=== PATIENT | male | born 1945 | race Caucasian/White ===

== ENCOUNTER 2016-11-27 06:17 | Day surgery (SDC) | payer MEDICARE ==
[2016-11-27] MEDS ORDERED: Sodium Chloride 0.9% 10 ML Syringe FLUSH PRN (07:30)
[2016-11-27 08:28] VITALS: BP 146/82
--- NOTE | 2016-11-27 10:19 | OR ---
DATE OF PROCEDURE: 11/27/2016 POSTOPERATIVE CARE: Postoperative care will be provided mainly at the [address] [place] [address] [facility] in conjunction with [facility]. PREOPERATIVE DIAGNOSIS: Cataract, left eye. PREOPERATIVE DIAGNOSIS: Cataract, left eye. PROCEDURE: Phacoemulsification with intraocular lens placement, left eye. ANESTHESIA: Topical and intracameral. ESTIMATED BLOOD LOSS: Minimal. COMPLICATIONS: None. PATHOLOGY SPECIMENS: None. SURGICAL FINDINGS: None. INDICATION FOR PROCEDURE: The patient is a 70-year-old male with history of a visually significant cataract in the left eye, which interfered with activities of daily living. This consisted of a nuclear sclerosis cataract. Following careful discussion of the risks, benefits and alternatives to cataract extraction with intraocular lens placement including blindness and , the patient elected to proceed, and informed, written consent was obtained prior to the procedure. DESCRIPTION OF THE PROCEDURE: The patient was previously identified, and a perry placed above the left eye. All sources, including the patient, indicated that the left eye was the correct eye. The patient was subsequently taken to the operating room where standard monitors were applied. The patient was then prepped and draped in the usual sterile fashion for ophthalmic surgery. Attention was first directed at the 12 o'clock position where a paracentesis port was fashioned. Shugar solution followed by Viscoat was instilled into the eye. Attention was then directed to the 8:30 position where a triplanar incision was made in a near-clear manner using a keratome. A continuous capsulorrhexis was then made using a combination of the cystotome and Utrata forceps. Hydrodissection was achieved using a balanced salt solution, and the lens rotated nicely. Phacoemulsification was then done using a modified [id number] technique without complication. Phaco time was 8.58 CDE. The remaining cortex was removed using the irrigation/aspiration handpiece. Provisc was then instilled into the eye. A Technis lens, model [id number], at 23.5 diopters was then placed in the capsular bag using an [place] injector. The remaining viscoelastic was removed using the irrigation/aspiration forceps. All wounds were then checked and found to be watertight. The lid speculum and drapes were removed. Maxitrol ointment was placed in the patient's left eye, and the eye was shielded. The patient tolerated the procedure well. The patient was instructed to follow up tomorrow. All needle and sponge counts were correct at the end of the procedure. Catie Cardenas MD /[id number]
== END 2016-11-27 08:25 | disposition home or self-care (01) ==
LOC: JP.SDS 06:17
PROVIDERS: ATTEND Ophthalmology
DX: H26.9 Unspecified cataract (principal); Z88.0 Allergy status to penicillin; Z88.7 Allergy status to serum and vaccine
CPT/HCPCS: 66984; C1780

== ENCOUNTER 2016-12-25 06:21 | Day surgery (SDC) | payer MEDICARE ==
[2016-12-25] MEDS ORDERED: Sodium Chloride 0.9% 10 ML SDV FLUSH PRN (07:15)
[2016-12-25 08:27] VITALS: BP 177/102
--- NOTE | 2016-12-25 09:33 | OR ---
DATE OF PROCEDURE: 12/25/2016 POSTOPERATIVE CARE: Postoperative care will be provided mainly at the [address] [place] [address] [facility] in conjunction with [facility]. PREOPERATIVE DIAGNOSIS: Cataract, right eye. PREOPERATIVE DIAGNOSIS: Cataract, right eye. PROCEDURE: Phacoemulsification with intraocular lens placement, right eye. ANESTHESIA: Topical and intracameral. ESTIMATED BLOOD LOSS: Minimal. COMPLICATIONS: None. PATHOLOGY SPECIMENS: None. SURGICAL FINDINGS: None. INDICATION FOR PROCEDURE: The patient is a 71-year-old male with history of a visually significant cataract in the right eye, which interfered with activities of daily living. This consisted of a nuclear sclerosis cataract. Following careful discussion of the risks, benefits and alternatives to cataract extraction with intraocular lens placement including blindness and , the patient elected to proceed, and informed, written consent was obtained prior to the procedure. DESCRIPTION OF THE PROCEDURE: The patient was previously identified, and a perry placed above the right eye. All sources, including the patient, indicated that the right eye was the correct eye. The patient was subsequently taken to the operating room where standard monitors were applied. The patient was then prepped and draped in the usual sterile fashion for ophthalmic surgery. Attention was first directed at the 12 o'clock position where a paracentesis port was fashioned. Shugar solution followed by Viscoat was instilled into the eye. Attention was then directed to the 8:30 position where a triplanar incision was made in a near-clear manner using a keratome. A continuous capsulorrhexis was then made using a combination of the cystotome and Utrata forceps. Hydrodissection was achieved using a balanced salt solution, and the lens rotated nicely. Phacoemulsification was then done using a modified [id number] technique without complication. Phaco time was 8.45 CDE. The remaining cortex was removed using the irrigation/aspiration handpiece. Provisc was then instilled into the eye. A Technis lens, model [id number], at 25.0 diopters was then placed in the capsular bag using an [place] injector. The remaining viscoelastic was removed using the irrigation/aspiration forceps. All wounds were then checked and found to be watertight. The lid speculum and drapes were removed. Maxitrol ointment was placed in the patient's right eye, and the eye was shielded. The patient tolerated the procedure well. The patient was instructed to follow up tomorrow. All needle and sponge counts were correct at the end of the procedure. Catie Cardenas MD /[id number]
== END 2016-12-25 08:29 | disposition home or self-care (01) ==
LOC: JP.SDS 06:21
PROVIDERS: ATTEND Ophthalmology
DX: H25.11 Age-related nuclear cataract, right eye (principal); I10 Essential (primary) hypertension; E78.00 Pure hypercholesterolemia, unspecified; K21.9 Gastro-esophageal reflux disease without esophagitis; E11.9 Type 2 diabetes mellitus without complications; Z88.0 Allergy status to penicillin; Z88.8 Allergy status to other drugs, medicaments and biological substances
CPT/HCPCS: 66984; C1780; J7050

== ENCOUNTER 2017-04-21 21:22 | Emergency (ER) | payer MEDICARE, OTHER ==
[2017-04-21 22:06] VITALS: BP 194/103
[2017-04-21] MEDS ORDERED: Ketorolac 60 MG/2 ML SDV IM ONE (22:41)
[2017-04-21] MEDS ORDERED: Cyclobenzaprine 10 MG Tab PO ONE (22:41)
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
== END 2017-04-21 23:08 | disposition home or self-care (01) ==
LOC: JP.ED 21:22
DX: M54.5 Low back pain (principal); I10 Essential (primary) hypertension; E78.00 Pure hypercholesterolemia, unspecified; K21.9 Gastro-esophageal reflux disease without esophagitis; E11.9 Type 2 diabetes mellitus without complications; E66.9 Obesity, unspecified; Z86.2 Personal history of diseases of the blood and blood-forming organs and certain disorders involving the immune mechanism; Z79.82 Long term (current) use of aspirin; Z79.899 Other long term (current) drug therapy; Z88.0 Allergy status to penicillin; Z88.8 Allergy status to other drugs, medicaments and biological substances
CPT/HCPCS: 96372; 99283; A9270; J1885

== ENCOUNTER 2019-05-14 19:01 | Emergency (ER) | payer MEDICARE ==
[2019-05-14] MEDS ORDERED: Sodium Chloride 0.9% 10 ML Syringe FLUSH PRN (19:45)
--- NOTE | 2019-05-14 19:49 | EDM.PDOC ---
ED HPI GENERAL MEDICAL PROBLEM - General Chief Complaint: General Stated Complaint: medical Time Seen by Provider: 05/14/19 19:49 Source of Information: Reports: Patient, EMS, Family () History Limitations: Reports: No Limitations (very simple thought processing ) - History of Present Illness INITIAL COMMENTS - FREE TEXT/NARRATIVE: Alert 73 year old male present via EMS for weakness, lightheadedness and near syncope which occurred around 5 pm this evening. Weakness and vestibular symptoms lasted until arrival to ER after 500cc nd given in route. Patient described symptoms as tunnel vision with mild headache and weakness. He did not fall and denies chest pain, pressure, nausea, shortness of breath or sweating before or during symptoms. Patient presents with for evaluation for acute concerns today. Patient's ate grilled cheese sandwich around noon. Patient had a new medication add 2 weeks ago for DM which has increased his thirst and increased urinary frequency. Patient had noted a nearly 20 pound weight loss in the last 2 weeks. Patient has a history of prostate cancer with radiation and renal concerns which were treated at the [facility] in [place]. 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: IV/IO Other Treatments TELEPHONE SERVICES SALES REPRESENTATIVE: 500 of NS IV Denies Pain Score (Numeric/FACES): 0 - Related Data Allergies Allergy/AdvReac Type Severity Reaction Status Date / Time Penicillins Allergy Hives Verified 05/14/19 19:09 varenicline [From Chantix] Allergy Cannot Verified 05/14/19 19:09 Remember Home Meds: Home Meds Metoprolol Tartrate [Lopressor] 50 mg PO BID 05/08/14 [History] Tamsulosin HCl 1 tab PO DAILY 02/26/16 [History] atorvaSTATin [Lipitor] 40 mg PO BEDTIME 02/26/16 [History] Glimepiride [Amaryl] 4 mg PO WITHBREAKFAST 11/24/16 [History] Pantoprazole Sodium [Protonix] 40 mg PO DAILY 07/13/17 [History] Empagliflozin [Jardiance] 10 mg PO DAILY 05/14/19 [History] Ferrous Gluconate 324 mg PO BID 05/14/19 [History] Losartan [Cozaar] 50 mg PO DAILY 05/14/19 [History] amLODIPine [Norvasc] 5 mg PO DAILY 05/14/19 [History] Past Medical History HEENT History: Reports: Cataract, Hard of Hearing, Impaired Vision Other HEENT History: wears glasses Cardiovascular History: Reports: High Cholesterol, Hypertension Respiratory History: Reports: COPD Gastrointestinal History: Reports: GERD Genitourinary History: Reports: Prostate Disorder, Other (See Below) Other Genitourinary History: benign left kidney tumor prostate CA surgery 5 weeks of radiation November 2018 Musculoskeletal History: Reports: Fracture Other Musculoskeletal History: right hand Endocrine/Metabolic History: Reports: Diabetes, Type II, Obesity/BMI 30+ Hematologic History: Reports: Anemia Oncologic (Cancer) History: Reports: Prostate Other Oncologic History: "thinking cancer on left kidney-going to [place] in September 2016 to have it checked on" Dermatologic History: Reports: None - Infectious Disease History Infectious Disease History: Reports: Chicken Pox - Past Surgical History HEENT Surgical History: Reports: Other (See Below) Other HEENT Surgeries/Procedures: eye lid surgery GI Surgical History: Reports: Colonoscopy, EGD Male Surgical History: Reports: Vasectomy Social & Family History - Family History Family Medical History: Noncontributory - Tobacco Use Smoking Status *Q: Current Some Day Smoker Years of Tobacco use: 60 Packs/Tins Daily: 0.5 Used Tobacco, but Quit: No Second Hand Smoke Exposure: Yes - Caffeine Use Caffeine Use: Reports: Coffee, Tea - Recreational Drug Use Recreational Drug Use: No ED ROS GENERAL - Review of Systems Review Of Systems: ROS reveals no pertinent complaints other than HPI. ED EXAM, GENERAL - Physical Exam Exam: See Below Exam Limited By: No Limitations General Appearance: Alert, WD/WN, No Apparent Distress Eye Exam: Bilateral Eye: EOMI, PERRL Ears: Normal External Exam, Normal Canal, Hearing Grossly Normal, Normal TMs Nose: Normal Inspection, Normal Mucosa, No Blood Throat/Mouth: Normal Inspection, Normal Lips, Normal Teeth, Normal Gums, Normal Oropharynx, Normal Voice, No Airway Compromise, Other (dry muscus membrane noted ) Head: Atraumatic, Normocephalic Neck: Normal Inspection, Supple, Non-Tender, Full Range of Motion Respiratory/Chest: No Respiratory Distress, Lungs Clear, Normal Breath Sounds, No Accessory Muscle Use, Chest Non-Tender Cardiovascular: Normal Peripheral Pulses, Regular Rate, Rhythm, No Edema GI/Abdominal: Normal Bowel Sounds, Soft, Non-Tender Back Exam: Normal Inspection, Full Range of Motion, NT Extremities: Normal Inspection, Normal Range of Motion, Non-Tender, No Pedal Edema Neurological: Alert, Oriented, CN II-XII Intact, Normal Cognition, Normal Gait, Normal Reflexes, No Motor/Sensory Deficits Psychiatric: Normal Affect, Normal Mood Skin Exam: Warm, Dry, Intact, Normal Color, No Rash EKG INTERPRETATION EKG Date: 05/14/19 Time: 20:08 Rhythm: NSR Rate (Beats/Min): 85 [place]: Normal P-Wave: Present QRS: Normal ST-T: Elevated (Anterior LEAD V2/V3 one box) QT: Normal Comparison: No Change (Previous V2-V3 elevation persistent) Course - Vital Signs Last Recorded V/S: Last Vital Signs Temp 36.6 C 05/14/19 22:08 Pulse 92 05/14/19 22:08 Resp 16 05/14/19 22:08 BP 132/78 05/14/19 22:08 Pulse Ox 98 05/14/19 22:08 - Orders/Labs/Meds Orders: Active Orders 24 hr Category Date Time Status Ambulate [RC] ASDIRECTED Care 05/14/19 22:01 Active Cardiac Monitoring [RC] .As Directed Care 05/14/19 19:46 Active EKG Documentation Completion [RC] ASDIRECTED Care 05/14/19 19:46 Active POC Glucose [Blood Glucose Check, Bedside] [RC] ONETIME Care 05/14/19 22:00 Active Peripheral IV Care [RC] . DIRECTED Care 05/14/19 19:46 Active CULTURE BLOOD [BC] Urgent Lab 05/14/19 19:50 Received CULTURE BLOOD [BC] Urgent Lab 05/14/19 20:04 Received CULTURE URINE [RM] Stat Lab 05/14/19 19:54 Received Sodium Chloride 0.9% [Normal Saline] 1,000 ml Med 05/14/19 20:30 Active IV ASDIRECTED Sodium Chloride 0.9% [Normal Saline] 1,000 ml Med 05/14/19 21:00 Active IV ASDIRECTED Sodium Chloride 0.9% [Saline Flush] Med 05/14/19 19:45 Active 10 ml FLUSH ASDIRECTED PRN Blood Culture x2 Reflex Set [OM.PC] Urgent Oth 05/14/19 19:45 Ordered Peripheral IV Insertion Adult [OM.PC] Urgent Oth 05/14/19 19:46 Ordered EKG 12 Lead [EK] Urgent Ther 05/14/19 19:46 Ordered Medication Orders Sodium Chloride (Normal Saline) 1,000 mls @ 1,000 mls/hr IV ASDIRECTED ERIBERTO Last Admin: 05/14/19 20:32 Dose: 1,000 mls/hr Sodium Chloride (Normal Saline) 1,000 mls @ 500 mls/hr IV ASDIRECTED ERIBERTO Sodium Chloride (Saline Flush) 10 ml FLUSH ASDIRECTED PRN PRN Reason: Keep Vein Open Labs: Laboratory Tests 05/14/19 05/14/19 05/14/19 Range/Units 19:50 19:50 19:50 WBC 12.9 H (4.5-11.0) K/uL RBC 4.28 L (4.30-5.90) M/uL Hgb 13.0 (12.0-15.0) g/dL Hct 38.9 L (40.0-54.0) % MCV 91 (80-98) fL MCH 30 (27-31) pg MCHC 33 (32-36) % Plt Count 224 (150-400) K/uL Neut % (Auto) 86 H (36-66) % Lymph % (Auto) 7 L (24-44) % Owen % (Auto) 6 (2-6) % Eos % (Auto) 1 L (2-4) % Baso % (Auto) 0 (0-1) % Sodium 138 L (140-148) mmol/L Potassium 4.4 (3.6-5.2) mmol/L Chloride 104 (100-108) mmol/L Carbon Dioxide 26 (21-32) mmol/L Anion Gap 12.4 (5.0-14.0) mmol/L BUN 25 H D (7-18) mg/dL Creatinine 2.2 H D (0.8-1.3) mg/dL Est Cr Clr Drug Dosing 28.38 mL/min Estimated GFR (MDRD) 30 L (>60) Glucose 302 H (74-106) mg/dL Lactic Acid 1.5 (0.4-2.0) mmol/L Calcium 9.6 (8.5-10.1) mg/dL Phosphorus (2.5-4.9) mg/dL Magnesium (1.8-2.4) mg/dL Total Bilirubin (0.2-1.0) mg/dL Direct Bilirubin (0.0-0.2) mg/dL Indirect Bilirubin AST (15-37) U/L ALT (12-78) U/L Alkaline Phosphatase (46-116) U/L Troponin I (0.000-0.056) ng/mL C-Reactive Protein 0.36 H (0.0-0.3) mg/dL Total Protein (6.4-8.2) g/dL Albumin (3.4-5.0) g/dL Globulin (2.3-3.5) g/dL Albumin/Globulin Ratio (1.2-2.2) Lipase 305 (73-393) U/L Urine Color (YELLOW) Urine Appearance (CLEAR) Urine pH (5.0-8.0) Ur Specific [place] (1.008-1.030) Urine Protein (NEGATIVE) mg/dL Urine Glucose (UA) (NEGATIVE) mg/dL Urine Ketones (NEGATIVE) mg/dL Urine Occult Blood (NEGATIVE) Urine Nitrite (NEGATIVE) Urine Bilirubin (NEGATIVE) Urine Urobilinogen (0.2-1.0) EU/dL Ur Leukocyte Esterase (NEGATIVE) Urine RBC (0-5) Urine WBC (0-5) Ur Epithelial Cells Amorphous Sediment Urine Bacteria Urine Mucus Ketones (NEGATIVE) 05/14/19 05/14/19 05/14/19 Range/Units 19:50 19:50 19:50 WBC (4.5-11.0) K/uL RBC (4.30-5.90) M/uL Hgb (12.0-15.0) g/dL Hct (40.0-54.0) % MCV (80-98) fL MCH (27-31) pg MCHC (32-36) % Plt Count (150-400) K/uL Neut % (Auto) (36-66) % Lymph % (Auto) (24-44) % Owen % (Auto) (2-6) % Eos % (Auto) (2-4) % Baso % (Auto) (0-1) % Sodium (140-148) mmol/L Potassium (3.6-5.2) mmol/L Chloride (100-108) mmol/L Carbon Dioxide (21-32) mmol/L Anion Gap (5.0-14.0) mmol/L BUN (7-18) mg/dL Creatinine (0.8-1.3) mg/dL Est Cr Clr Drug Dosing mL/min Estimated GFR (MDRD) (>60) Glucose (74-106) mg/dL Lactic Acid (0.4-2.0) mmol/L Calcium (8.5-10.1) mg/dL Phosphorus (2.5-4.9) mg/dL Magnesium 2.1 (1.8-2.4) mg/dL Total Bilirubin 0.3 (0.2-1.0) mg/dL Direct Bilirubin 0.13 (0.0-0.2) mg/dL Indirect Bilirubin 0.17 AST 16 (15-37) U/L ALT 32 (12-78) U/L Alkaline Phosphatase 126 H D (46-116) U/L Troponin I < 0.017 (0.000-0.056) ng/mL C-Reactive Protein (0.0-0.3) mg/dL Total Protein 7.2 (6.4-8.2) g/dL Albumin 3.3 L (3.4-5.0) g/dL Globulin 3.9 H (2.3-3.5) g/dL Albumin/Globulin Ratio 0.9 L (1.2-2.2) Lipase (73-393) U/L Urine Color (YELLOW) Urine Appearance (CLEAR) Urine pH (5.0-8.0) Ur Specific [place] (1.008-1.030) Urine Protein (NEGATIVE) mg/dL Urine Glucose (UA) (NEGATIVE) mg/dL Urine Ketones (NEGATIVE) mg/dL Urine Occult Blood (NEGATIVE) Urine Nitrite (NEGATIVE) Urine Bilirubin (NEGATIVE) Urine Urobilinogen (0.2-1.0) EU/dL Ur Leukocyte Esterase (NEGATIVE) Urine RBC (0-5) Urine WBC (0-5) Ur Epithelial Cells Amorphous Sediment Urine Bacteria Urine Mucus Ketones (NEGATIVE) 05/14/19 05/14/19 05/14/19 Range/Units 19:54 20:41 20:55 WBC (4.5-11.0) K/uL RBC (4.30-5.90) M/uL Hgb (12.0-15.0) g/dL Hct (40.0-54.0) % MCV (80-98) fL MCH (27-31) pg MCHC (32-36) % Plt Count (150-400) K/uL Neut % (Auto) (36-66) % Lymph % (Auto) (24-44) % Owen % (Auto) (2-6) % Eos % (Auto) (2-4) % Baso % (Auto) (0-1) % Sodium (140-148) mmol/L Potassium (3.6-5.2) mmol/L Chloride (100-108) mmol/L Carbon Dioxide (21-32) mmol/L Anion Gap (5.0-14.0) mmol/L BUN (7-18) mg/dL Creatinine (0.8-1.3) mg/dL Est Cr Clr Drug Dosing mL/min Estimated GFR (MDRD) (>60) Glucose (74-106) mg/dL Lactic Acid (0.4-2.0) mmol/L Calcium (8.5-10.1) mg/dL Phosphorus 4.1 (2.5-4.9) mg/dL Magnesium (1.8-2.4) mg/dL Total Bilirubin (0.2-1.0) mg/dL Direct Bilirubin (0.0-0.2) mg/dL Indirect Bilirubin AST (15-37) U/L ALT (12-78) U/L Alkaline Phosphatase (46-116) U/L Troponin I (0.000-0.056) ng/mL C-Reactive Protein (0.0-0.3) mg/dL Total Protein (6.4-8.2) g/dL Albumin (3.4-5.0) g/dL Globulin (2.3-3.5) g/dL Albumin/Globulin Ratio (1.2-2.2) Lipase (73-393) U/L Urine Color Yellow (YELLOW) Urine Appearance Clear (CLEAR) Urine pH 6.0 (5.0-8.0) Ur Specific [place] 1.010 (1.008-1.030) Urine Protein 100 H (NEGATIVE) mg/dL Urine Glucose (UA) 500 H (NEGATIVE) mg/dL Urine Ketones Negative (NEGATIVE) mg/dL Urine Occult Blood Negative (NEGATIVE) Urine Nitrite Negative (NEGATIVE) Urine Bilirubin Negative (NEGATIVE) Urine Urobilinogen 0.2 (0.2-1.0) EU/dL Ur Leukocyte Esterase Negative (NEGATIVE) Urine RBC 0-5 (0-5) Urine WBC Not seen (0-5) Ur Epithelial Cells Few Amorphous Sediment Not seen Urine Bacteria Few Urine Mucus Not seen Ketones Negative (NEGATIVE) Meds: Medications Generic Name Dose Route Start Last Admin Trade Name Freq PRN Reason Stop Dose Admin Sodium Chloride 1,000 mls @ 1,000 mls/hr 05/14/19 20:30 05/14/19 20:32 Normal Saline IV 1,000 mls/hr ASDIRECTED ERIBERTO Administration Sodium Chloride 1,000 mls @ 500 mls/hr 05/14/19 21:00 Normal Saline IV ASDIRECTED ERIBERTO Sodium Chloride 10 ml 05/14/19 19:45 Saline Flush FLUSH ASDIRECTED PRN Keep Vein Open Discontinued Medications Generic Name Dose Route Start Last Admin Trade Name Freq PRN Reason Stop Dose Admin Insulin Human Regular 6 unit 05/14/19 20:53 05/14/19 21:42 Humulin R SUBCUT 05/14/19 20:54 6 unit ONETIME ONE Administration - Radiology Interpretation Free Text/Narrative:: CXR PA/LAT: No acute cardiopulmonary findings noted. CT Head: No acute intracranial abnormality noted. Expected Atrophy. Radiology reports reviewed during ER visit. - Re-Assessments/Exams Free Text/Narrative Re-Assessment/Exam: Exam was completed with broad different consider including TIA, posterior stroke , vertigo, electrolyte abnormality, cardiac arrhythmia, MA, peripheral or central vertiginous syndrome with was acute, no episodic due to prolonged duration or positional. Patient has no current focal neurologic deficits, CN intact, no upper or lower motor weakness noted. 05/14/19 20:34 Laboratory results reviewed noting BS 300+, worsening renal function with elevated in BUN and Creatine 2.2. I spoke with inpatient physician regarding admission but recommended IVF, SubQ insulin and discharge with plan to hold Jardiance at this time. 05/14/19 20:54 Patient is feeling improved, food was offered and ambulated in the department. Reviewed remainder of his blood work, CXR and CT showing no acute concerning findings. I am concerned side effects from the Jardiance resulting in acute kidney injury with eGFR less than 30 which is a contraindication for use of Jardiance. Increase blood sugar of 300 despite not eating since noon today. 05/14/19 22:11 Departure - Departure Time of Disposition: 22:20 Disposition: Home, Self-Care 01 Clinical Impression: Hyperglycemia, Acute renal failure, Medication side effects present, Hypovolemia, Hyponatremia - Discharge Information Instructions: Acute Kidney Injury, Adult, Near-Syncope, Dehydration, Elderly, Rehydration, Elderly, Dehydration, Adult Referrals: PCP,None [Primary Care Provider] - Forms: ED Department Discharge Additional Instructions: 1. Hold Jardiance medication at this time due to side effects with increased thirst, urination and increase blood sugar noted. 2. Increased fluid intake water with meals per usual. 3. Continue additional routine medications. 4. Call PCP for recheck in 3-5 days. 5. Return to ER if continued symptoms or worsening concerns. 6. - Problem List & Annotations (1) Hyperglycemia SNOMED Code(s): 68216402 Code(s): R73.9 - HYPERGLYCEMIA, UNSPECIFIED Status: Acute Current Visit: Yes (2) Acute renal failure SNOMED Code(s): 32016174 Code(s): N17.9 - ACUTE KIDNEY FAILURE, UNSPECIFIED Status: Acute Current Visit: Yes (3) Medication side effects present SNOMED Code(s): 585993839 Code(s): T50.905A - ADVERSE EFFECT OF UNSP DRUG/MEDS/BIOL SUBST, INIT Status: Acute Current Visit: Yes (4) Hypovolemia SNOMED Code(s): 47095830 Code(s): E86.1 - HYPOVOLEMIA Status: Acute Current Visit: Yes - My Orders Last 24 Hours: My Active Orders 05/14/19 19:45 Sodium Chloride 0.9% [Saline Flush] 10 ml FLUSH ASDIRECTED PRN Blood Culture x2 Reflex Set [OM.PC] Urgent 05/14/19 19:46 Cardiac Monitoring [RC] .As Directed EKG Documentation Completion [RC] ASDIRECTED Peripheral IV Care [RC] . DIRECTED Peripheral IV Insertion Adult [OM.PC] Urgent EKG 12 Lead [EK] Urgent 05/14/19 19:50 CULTURE BLOOD [BC] Urgent 05/14/19 19:54 CULTURE URINE [RM] Stat 05/14/19 20:04 CULTURE BLOOD [BC] Urgent 05/14/19 20:30 Sodium Chloride 0.9% [Normal Saline] 1,000 ml IV ASDIRECTED 05/14/19 21:00 Sodium Chloride 0.9% [Normal Saline] 1,000 ml IV ASDIRECTED 05/14/19 22:00 POC Glucose [Blood Glucose Check, Bedside] [RC] ONETIME 05/14/19 22:01 Ambulate [RC] ASDIRECTED - Assessment/Plan Last 24 Hours: My Active Orders 05/14/19 19:45 Sodium Chloride 0.9% [Saline Flush] 10 ml FLUSH ASDIRECTED PRN Blood Culture x2 Reflex Set [OM.PC] Urgent 05/14/19 19:46 Cardiac Monitoring [RC] .As Directed EKG Documentation Completion [RC] ASDIRECTED Peripheral IV Care [RC] . DIRECTED Peripheral IV Insertion Adult [OM.PC] Urgent EKG 12 Lead [EK] Urgent 05/14/19 19:50 CULTURE BLOOD [BC] Urgent 05/14/19 19:54 CULTURE URINE [RM] Stat 05/14/19 20:04 CULTURE BLOOD [BC] Urgent 05/14/19 20:30 Sodium Chloride 0.9% [Normal Saline] 1,000 ml IV ASDIRECTED 05/14/19 21:00 Sodium Chloride 0.9% [Normal Saline] 1,000 ml IV ASDIRECTED 05/14/19 22:00 POC Glucose [Blood Glucose Check, Bedside] [RC] ONETIME 05/14/19 22:01 Ambulate [RC] ASDIRECTED
[2019-05-14] MEDS ORDERED: Sodium Chloride 0.9% 1,000 ML IV SCH ×2 (20:30→21:00)
[2019-05-14] MEDS ORDERED: Insulin Regular, Human 100 Units/ML 3 ML Vial SUBCUT ONE (20:53)
--- NOTE | 2019-05-14 21:29 | CRLCR ---
INDICATION: Weakness and dizziness. COMPARISON: Portable exam from 02/26/2016 FINDINGS: PA and lateral views of the chest were obtained. The lungs remain clear. No focal or diffuse infiltrates are present. The heart remains normal in size. The mediastinum is normal in appearance. The osseous structures are normal in appearance for the patient`s age. IMPRESSION: Normal chest two views. Dictated by Lamin Chavez MD @ May 14 2019 9:28PM Signed by Dr. Lamin Chavez @ May 14 2019 9:29PM
--- NOTE | 2019-05-14 21:32 | CRLCT ---
INDICATION: Weakness and dizziness COMPARISON: None available. TECHNIQUE: CT examination of the head was performed with 3 mm thick axial sections without intravenous contrast. Images were obtained from the vertex of the skull through the skull base, and I examined the images with the brain and bone windows. Please note that all CT scans at this facility use dose modulation, iterative reconstruction, and/or weight-based dosing when appropriate to reduce radiation dose to as low as reasonably achievable. FINDINGS: : The brain is normal in appearance for the patient`s age on today`s study, with no sign of mass lesion, mass effect, hemorrhage, or edema. There is mild dilatation of the ventricles and sulci representing mild, age-appropriate atrophy. The visualized portions of the orbits are normal in appearance status post cataract surgery. The visualized portions of the paranasal sinuses and mastoids are clear. The osseous structures are normal in their appearance with no sign of abnormality in the skull base or calvarium. IMPRESSION: Normal noncontrast CT of the head for the patient`s age. Mild, age-appropriate atrophy. Please note that all CT scans at this facility use dose modulation, iterative reconstruction, and/or weight-based dosing when appropriate to reduce radiation dose to as low as reasonably achievable. Dictated by Lamin Chavez MD @ May 14 2019 9:29PM Signed by Dr. Lamin Chavez @ May 14 2019 9:30PM
[2019-05-14 22:10] VITALS: BP 132/78; PULSE 92
== END 2019-05-14 22:36 | disposition home or self-care (01) ==
LOC: JP.ED 19:01
DX: E11.65 Type 2 diabetes mellitus with hyperglycemia (principal); T50.905A Adverse effect of unspecified drugs, medicaments and biological substances, initial encounter; R35.8 Other polyuria; N17.9 Acute kidney failure, unspecified; E86.1 Hypovolemia; E87.1 Hypo-osmolality and hyponatremia; E78.00 Pure hypercholesterolemia, unspecified; I10 Essential (primary) hypertension; J44.9 Chronic obstructive pulmonary disease, unspecified; E11.9 Type 2 diabetes mellitus without complications; E66.9 Obesity, unspecified; K21.9 Gastro-esophageal reflux disease without esophagitis; N42.9 Disorder of prostate, unspecified; F17.210 Nicotine dependence, cigarettes, uncomplicated; Z88.0 Allergy status to penicillin; Z91.048 Other nonmedicinal substance allergy status; Z79.899 Other long term (current) drug therapy; Z68.29 Body mass index [BMI] 29.0-29.9, adult; Z85.528 Personal history of other malignant neoplasm of kidney
CPT/HCPCS: 36415; 70450; 71046; 80048; 80076; 81001; 82009; 82962; 83605; 83690; 83735; 84100; 84484; 85025; 86140; 87040; 87086; 93005; 96360; 96361; 96372; 99284; 99285; J1815; J7030; 93010